=== PATIENT | female | born 1945 | race Caucasian/White ===

== ENCOUNTER 2016-09-20 10:28 | Day surgery (SDC) | payer MEDICARE ==
[2016-09-20] MEDS ORDERED: LACTATED RINGERS 1,000 ML IV SCH (10:30)
[2016-09-20] MEDS ORDERED: IV START KIT ONE (10:36)
[2016-09-20] MEDS ORDERED: PROPOFOL 20 ML IV ONE (11:00)
[2016-09-20] MEDS ORDERED: LIDOCAINE 2% (PRES FREE) 5 ML VIAL ONE (11:00)
[2016-09-20] MEDS ORDERED: LIDOCAINE Viscous 2% 15 ML UDCUP ONE (11:16)
[2016-09-20 16:02] LABS: HELICOBACTER PYLORII DETECTION NEGATIVE (NEGATIVE)
== END 2016-09-20 12:45 | disposition home or self-care (01) ==
LOC: SDC 10:28
PROVIDERS: ATTEND Internal Medicine Gastroenterology
PROC: 0DB98ZX Excision of Duodenum, Via Natural or Artificial Opening Endoscopic, Diagnostic (ICD-10-PCS; principal; 2016-09-20)
PROC: 0DB68ZX Excision of Stomach, Via Natural or Artificial Opening Endoscopic, Diagnostic (ICD-10-PCS; 2016-09-20)
DX: K29.70 Gastritis, unspecified, without bleeding (principal); K29.50 Unspecified chronic gastritis without bleeding; I10 Essential (primary) hypertension; M06.9 Rheumatoid arthritis, unspecified; J44.9 Chronic obstructive pulmonary disease, unspecified; F41.9 Anxiety disorder, unspecified; Z87.891 Personal history of nicotine dependence; Z88.5 Allergy status to narcotic agent; Z88.8 Allergy status to other drugs, medicaments and biological substances; Z79.82 Long term (current) use of aspirin
CPT/HCPCS: 87081; 43239; A9270; J7120